=== PATIENT | male | born 1990 | race American Indian/Alaskan Native ===

== ENCOUNTER 2021-08-03 16:16 | Inpatient (IN) | payer OTHER, SELFPAY ==
[2021-08-03 16:51] VITALS: BMI 21.6
[2021-08-03 17:40] VITALS: BP 131/87; PULSE 69; TEMP 37.3
--- NOTE | 2021-08-03 18:07 | PC.ADMIT ---
Nursing Admission Note Dipak is a 30-year-old male who was transferred from [facility] ED after intentional overdose on 20 trazodone and 20 citalopram along with heroin and cocaine. During the admission interview, pt stated he didn't intend to kill himself, but he just wanted to numb the pain for a while. Pt denied anxiety at this time but was frequently bouncing his leg during the interview. When t/w asked him if he's experienced any trauma, he hesitated for a moment, then said I've seen a lot of things in my life. It's ok I don't want to talk about it right now. Pt denies any recent stressors contributing to his overdose. Pt lives in an apartment with his and her two children. Pt has a strong family support system. He said I just want to get better because I can't lose my family. Pt displayed future-orienting thinking by stating that he plans on attending groups and engaging in therapy. Pt stated he previously attended therapy at [facility] in [place] but stopped going to his appointments. After his discharge he hopes to resume attending regularly scheduled appointments. Pt denies SI/HI at this time, also denies AH/VH.
[2021-08-03] MEDS: Magnesium Hydrox/Alum Hydrox 30 ML ORAL.SUSP PO (19:40)
[2021-08-03] MEDS: hydrOXYzine HCL 25 MG TABLET PO ×2 (19:41→21:29)
[2021-08-03] MEDS: Acetaminophen 325 MG TABLET 650 MG PO (19:41)
[2021-08-03] MEDS: Nicotine Polacrilex 2 MG GUM 4 MG BUCCAL (19:45)
--- NOTE | 2021-08-04 | ECG_ITS ---
Test Reason : htn, cocaine use Blood Pressure : / mmHG Vent. Rate : 055 BPM Atrial Rate : 055 BPM P-R Int : 128 ms QRS Dur : 086 ms QT Int : 426 ms P-R-T Axes : 089 053 067 degrees QTc Int : 407 ms Sinus bradycardia Otherwise normal ECG No previous ECGs available Referred By: Nicholas Diaz Electronically Signed By:RAMAN GROVES
[2021-08-04 06:00] VITALS: BP 158/97; PULSE 55; RESP 16; TEMP 36.8; O2SAT 98
[2021-08-04 11:15] VITALS: PULSE 56
[2021-08-04] MEDS: Buprenorphine/Naloxone 4/1 mg FILM 1 FILM SUBLINGUAL ×2 (11:20→16:27)
[2021-08-04 11:40] LABS: MANUAL DIFF FLAG NO
[2021-08-04 11:42] LABS: Basophils Percent Auto 0.4 % (0-2); Eosinophils Absolute Auto 0.1 X10*3/uL (0.0-0.4); Eosinophils Percent Auto 1.1 % (0-4); Hematocrit 45.7 % (42-52); Hemoglobin 14.9 g/dl (14.0-18.0); Imm Gran Abs Auto 0.01 X10*3/uL (0.00-0.03); Imm Gran Pct Auto 0.1 % (0.0-0.4); Lymphocytes Absolute Auto 2.1 X10*3/uL (1.2-4.9); Lymphocytes Percent Auto 29.2 % (20-40); Mean Corpuscular HGB Conc 32.6 g/dl (31.0-36.0); Mean Corpuscular Hemoglobin 27.2 pg (27.0-33.0); Mean Corpuscular Volume 83.4 fL (80-98); Mean Platelet Volume 9.7 fL (9.4-12.4); Monocytes Absolute Auto 0.6 X10*3/uL (0.1-1.2); Monocytes Percent Auto 8.1 % (2-11); Neutrophils Absolute Auto 4.5 X10*3/uL (2.0-8.3); Neutrophils Percent Auto 61.1 % (45-73); Platelet Count 318 X10*3/uL (160-400); Red Blood Count 5.48 X10*6/uL (4.60-5.80); Red Cell Distribution Width 13.5 % (11.0-16.0); White Blood Count 7.3 X10*3/uL (4.8-10.8)
[2021-08-04 11:57] LABS: Alanine Aminotransferase 18 U/L (0-40); Albumin Level 4.5 g/dL (3.5-5.0); Alkaline Phosphatase 96 U/L (39-117); Anion Gap 13 (12-20); Aspartate Amino Transferase 15 U/L (5-37); Bilirubin Total 0.5 mg/dL (0.0-1.0); Blood Urea Nitrogen 7 mg/dL (9-16); Calcium 10.2 mg/dL (8.4-10.2); Carbon Dioxide 29 mmol/L (22-29); Chloride 101 mmol/L (96-108); Cholesterol 185 mg/dL; Creatinine Clr Calc Pharmacy 102.8; Estimated Glomerular Filt Rate > 60; Glucose Random 123 mg/dL (60-115); HDL Cholesterol 34 mg/dL; LDL Cholesterol Calculated 130 mg/dl; Magnesium 2.3 mg/dL (1.6-2.6); Potassium 4.3 mmol/L (3.3-5.1); Sodium 139 mmol/L (135-145); Total Protein 8.9 g/dL (6.5-8.0); Triglycerides 106 mg/dL
--- NOTE | 2021-08-04 13:18 | HO.PM.IMCN ---
History of Present Illness Data of Consult Service Date: 08/04/21 Primary Care Provider: NUVIA Sandhu [facility] Reason for consult: Medical management and history and physical 30-year-old gentleman with history of polysubstance abuse, admitted to with symptoms of anxiety, patient complaining of, constipation, lightheadedness and mild lower abdominal discomfort, he is not eating much since he feels he is cleaning himself from cocaine and heroin that he stopped using 3 days ago, he denies any medical diagnosis from before and is not on scheduled home medications, he denies chest pain, shortness of breath, cough, headache or weakness. Review of Systems Review of Systems: General no headache, no fever chills. CVS no chest pain, no palpitation. Respiratory no cough no sob. Gastrointestinal no nausea no vomiting, abdominal pain Yes all other systems are reviewed and are negative PMFSH Pertinent family history: Mother has diabetes, hypertension, father is Disease, no family history of colon cancer, breast cancer. Social History Household Members: Spouse and Children Housing: Apartment Do you presently have visiting nurse or other home services: No Patient Tobacco Use Status: Current everyday Tobacco user Tobacco use type: Cigarette Cigarette Packs Per Day: 1 Cigarettes Per Day: 20.0 Years Smoked: 20 Smoked in Last 30 Days: Yes e-Cigarette/Vaping Use: Never Used Patient Interested in Nicotine Replacement: Yes Patient Given Instructions on How to Stop Smoking: Yes Date Education Initiated: 08/03/21 Second Hand Smoke Exposure: Yes Substance Use Type: Crack/Cocaine, Heroin and Marijuana Substance Use Frequency: Daily Last Used Substance: Days (ago) Last Used Substance Other:: 3 days ago cocaine, heroin, marijuana Currently Displaying Signs/Symptoms of Drug Intoxication Withdrawal: No Any prior treatment program specific to substance use: No Have you been hit, kicked, punched, or otherwise hurt by someone within the past year? If so, by whom?: No Do you feel safe in your current relationship?: No Is there a partner from a previous relationship who is making you feel unsafe now?: No Are you made to feel afraid or neglected: No Advance Directives: No Advance Directives Information Provided: No Do you have thoughts of harming others: None Do you have a plan to hurt others: No Plan Recently lost weight without trying: No How much weight loss: Not applicable Eating poorly because of decreased appetite: No Nutrition screen score: 0 Nutrition Risks: No Nutritional Risk Poor oral hygiene: No Meds Allergies Allergy/AdvReac Type Severity Reaction Status Date / Time [facility] AdvReac Agitated Verified 08/03/21 17:36 Active Medications: Current Medications Acetaminophen (Acetaminophen 325 Mg Tablet) 650 mg PO Q6H PRN PRN Reason: Headache/Pain Mild Scale (1-3) Last Admin: 08/03/21 19:41 Dose: 650 mg Documented by: Al Hydroxide/Mg Hydroxide (Magnesium Hydrox/Alum Hydrox 30 Ml Oral.Susp) 30 ml PO Q6H PRN PRN Reason: Heartburn/Nausea Last Admin: 08/03/21 19:40 Dose: 30 ml Documented by: Hydroxyzine HCl (Hydroxyzine Hcl 25 Mg Tablet) 25 mg PO BEDTIME PRN PRN Reason: Anxiety Last Admin: 08/03/21 21:29 Dose: 25 mg Documented by: Magnesium Hydroxide (Milk Of Magnesia 30 Ml Oral.Susp) 30 ml PO DAILY PRN PRN Reason: Constipation Melatonin (Melatonin 3 Mg Tablet) 3 mg PO BEDTIME PRN PRN Reason: Insomnia Nicotine Polacrilex (Nicotine Polacrilex 2 Mg Gum) 4 mg BUCCAL Q2H PRN PRN Reason: Nicotine Cravings Last Admin: 08/03/21 19:45 Dose: 4 mg Documented by: Physical Exam Vital Signs and Narrative: Vital Signs: Last Vital Signs Temp 98.3 F 08/04/21 06:00 Pulse 55 08/04/21 06:00 Resp 16 08/04/21 06:00 BP 158/97 H 08/04/21 06:00 Pulse Ox 98 08/04/21 06:00 Body Mass Index 21.6 General AxOx3 , no acute distress. Neck supple, no JVD. CVS regular rate rhythm, Respiratory lungs clear to auscultation, no respiratory distress, no wheeze, no rhonchi. Gastrointestinal abdomen soft, mild left lower quadrant tenderness, bowel sounds audible, no guarding , no rigidity. Extremities no edema. Neuro nonfocal . Skin track interiano both upper extremities Results Labs CBC and Chem 7: 08/04/21 11:34 08/04/21 11:34 Labs: Laboratory Results - last 24 hr 08/04/21 08/04/21 11:34 11:34 MCV 83.4 MCH 27.2 MCHC 32.6 RDW 13.5 Plt Count 318 MPV 9.7 Immature Gran % (Auto) 0.1 Neut % (Auto) 61.1 Lymph % (Auto) 29.2 [place] % (Auto) 8.1 Eos % (Auto) 1.1 Baso % (Auto) 0.4 Lymph # (Auto) 2.1 [place] # (Auto) 0.6 Eos # (Auto) 0.1 Baso # (Auto) 0.0 Abs Immat Gran (auto) 0.01 Absolute Neuts (auto) 4.5 Absolute Nucleated RBC 0.000 Nucleated RBC % (auto) 0.0 Anion Gap 13 Estim Creat Clear Calc 102.8 Estimated GFR > 60 Random Glucose 123 H Calcium 10.2 Magnesium 2.3 Total Bilirubin 0.5 AST 15 ALT 18 Alkaline Phosphatase 96 Total Protein 8.9 H Albumin 4.5 Triglycerides 106 Cholesterol 185 LDL Cholesterol, Calc 130 HDL Cholesterol 34 Assessment and Plan (1) Lightheadedness: Status: Acute (2) Constipation: Status: Acute (3) Polysubstance abuse: Status: Acute 30-year-old gentleman with history of polysubstance abuse admitted to with no prior history of medical issues complaining of lightheadedness lower abdominal discomfort and constipation. Abdominal pain/constipation Abdominal pain likely due to constipation since patient is having small hard stools likely due to the use of heroin Noted to have normal electrolytes, LFTs, renal function and normal CBC, no evidence of infection Will place patient on MiraLax Lightheadedness likely due to poor by mouth intake, noted to have elevated blood sugars, hemoglobin A1cs pending question has diabetes, also noted to have mildly elevated blood pressure Will follow blood pressure and hemoglobin A1c if noted to be elevated patient will be placed on treatment. Thank you for allowing us to participate in the care of this patient call us with any questions.
[2021-08-04 14:06] LABS: Estimated Average Glucose 120 mg/dL; Hemoglobin A1C 149.7411 umol/L; Hemoglobin A1c % 5.8 %
[2021-08-04] MEDS: Nicotine Polacrilex 2 MG GUM 4 MG BUCCAL (14:54)
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
[2021-08-04 18:00] VITALS: BP 134/86; PULSE 69; TEMP 37.1
[2021-08-04 18:11] VITALS: BP 145/91; PULSE 62
[2021-08-04] MEDS: cloNIDine HCL 0.1 MG TABLET PO (18:11)
--- NOTE | 2021-08-04 18:28 | PM.EVENT ---
Event Note Date of Service: 08/04/21 Event Note: Addiction brief note: Patient started on Suboxone earlier by psych provider, consult requested to adjust dosing. Patient reports that he has been on Suboxone 8 mg in the morning and 4 mg in the evening. Received 4 mg earlier today with positive affect, patient is still reporting withdrawal symptoms. Plan: -additional 4 mg ordered for tonight -restart Suboxone 8 mg in the morning and 4 mg at 18:00 (as patient reported this is the time that he usually took it) -full note to follow.
[2021-08-04] MEDS: Sertraline HCL 25 MG TABLET PO (20:02)
[2021-08-04] MEDS: Melatonin 3 MG TABLET PO (21:06)
[2021-08-05 07:52] VITALS: BP 131/101; PULSE 73
[2021-08-05] MEDS: cloNIDine HCL 0.1 MG TABLET PO ×2 (07:52→21:34)
[2021-08-05] MEDS: Buprenorphine/Naloxone 8/2 mg FILM 1 FILM SUBLINGUAL (07:52)
[2021-08-05 08:33] VITALS: BP 131/95; PULSE 68
--- NOTE | 2021-08-05 11:12 | HO.ADDICTCON ---
History of Present Illness Date of Service: 08/04/2021 Chief Complaint: Unspecified anxiety Reason for Consult: opioid use disorder Requesting physician: Gita Snyder Discussed with referring provider: Yes Sources of Information: patient interviewed and chart reviewed HPI Narrative: Patient is a 30 year old Sinhala speaking male currently psychiatrically admitted with suicidal ideation and worsening depression. Consult requested to evaluate and treat OUD. Patient seen in room 516. He was laying bed, but awake and alert and engaged in interview. Substance use hx: -started using opiates and cocaine around age 16. -longest period in recovery approx 2 years following incareceration -recently began to use again (about 1-2 years) after moving to [place]- -using approx 3-4 bundles QD -has previously been on methadone and suboxone. Patient reporting mild withdrawal sx at time of interview. Malaise, body aches, anxiety. Denies nausea, loose stools, vomiting. He was given one dose of 4mg suboxone in the AM and reported positive effect. Reports he has previously been on 8mg in AM and 4mg in early evening. Past Psychiatric History: Past meds: sertraline (reports positive effect), celexa (says it was helpful but prefers sertraline), ativan, klonopin, gabapentin, seroquel, vistaril, trazodone, propranolol. PPH: -Hx of OP services at [facility] for therapy and med management at [facility] but was non-adherent with appointments, last seen 10/2020. -Hx of multiple psych inpatient admissions in [place]. -Hx of multiple crisis evals, last seen 03/28/21 due to SI with plans to jump off a bridge or overdose, [place] [facility] [place] [facility] [place] seen 08/2020 at [facility] ED due to SI, non-adherence with meds, superficially self-harming, and substance use, disposition was [facility] of care. -Previously had [facility] to help with med management/ adherence Personal & Social History: currently not living together Review of Systems Constitutional: Reports as per HPI and Reports no additional constitutional complaints Diagnostics Vital Signs (24Hr): Vital Signs - 24 hr 08/04/21 18:00 08/04/21 18:11 08/05/21 07:52 Temperature 98.8 F Pulse Rate 69 62 73 Blood Pressure 134/86 145/91 H 131/101 H 08/05/21 08:33 Temperature Pulse Rate 68 Blood Pressure 131/95 H Body Mass Index 21.6 Labs Results: 08/04/21 11:34 08/04/21 11:34 Labs: Laboratory Results - last 48 hr 08/04/21 08/04/21 08/04/21 11:34 11:34 11:34 WBC 7.3 RBC 5.48 Hgb 14.9 Hct 45.7 MCV 83.4 MCH 27.2 MCHC 32.6 RDW 13.5 Plt Count 318 MPV 9.7 Immature Gran % (Auto) 0.1 Neut % (Auto) 61.1 Lymph % (Auto) 29.2 [place] % (Auto) 8.1 Eos % (Auto) 1.1 Baso % (Auto) 0.4 Lymph # (Auto) 2.1 [place] # (Auto) 0.6 Eos # (Auto) 0.1 Baso # (Auto) 0.0 Abs Immat Gran (auto) 0.01 Absolute Neuts (auto) 4.5 Absolute Nucleated RBC 0.000 Nucleated RBC % (auto) 0.0 Sodium 139 Potassium 4.3 Chloride 101 Carbon Dioxide 29 Anion Gap 13 BUN 7 L Creatinine 0.86 Estim Creat Clear Calc 102.8 Estimated GFR > 60 Random Glucose 123 H Estimat Average Glucose 120 Hemoglobin A1c % 5.8 Calcium 10.2 Magnesium 2.3 Total Bilirubin 0.5 AST 15 ALT 18 Alkaline Phosphatase 96 Total Protein 8.9 H Albumin 4.5 Triglycerides 106 Cholesterol 185 LDL Cholesterol, Calc 130 HDL Cholesterol 34 Mental Status Exam Mental Status Exam Patient Appearance: Appropriate Patient Orientation: Person, Place, Time and Situation Level of Consciousness: Awake, Appropriate and Alert Patient Behavior: Appropriate and Cooperative Mood Description: Appropriate Affect Description: Calm and Appropriate Judgement: Fair Medications Medications Current Medications Acetaminophen (Acetaminophen 325 Mg Tablet) 650 mg PO Q6H PRN PRN Reason: Headache/Pain Mild Scale (1-3) Last Admin: 08/03/21 19:41 Dose: 650 mg Documented by: Al Hydroxide/Mg Hydroxide (Magnesium Hydrox/Alum Hydrox 30 Ml Oral.Susp) 30 ml PO Q6H PRN PRN Reason: Heartburn/Nausea Last Admin: 08/03/21 19:40 Dose: 30 ml Documented by: Buprenorphine/Naloxone (Buprenorphine/Naloxone 8/2 Mg Film) 1 film SUBLINGUAL DAILY PETE Last Admin: 08/05/21 07:52 Dose: 1 film Documented by: Buprenorphine/Naloxone (Buprenorphine/Naloxone 4/1 Mg Film) 1 film SUBLINGUAL DAILY@1800 [facility] Clonidine HCl (Clonidine Hcl 0.1 Mg Tablet) 0.1 mg PO Q6H PRN; Protocol PRN Reason: anxiety, hyperarousal Last Admin: 08/05/21 07:52 Dose: 0.1 mg Documented by: Hydroxyzine HCl (Hydroxyzine Hcl 25 Mg Tablet) 25 mg PO BEDTIME PRN PRN Reason: Anxiety Last Admin: 08/03/21 21:29 Dose: 25 mg Documented by: Magnesium Hydroxide (Milk Of Magnesia 30 Ml Oral.Susp) 30 ml PO DAILY PRN PRN Reason: Constipation Melatonin (Melatonin 3 Mg Tablet) 3 mg PO BEDTIME PRN PRN Reason: Insomnia Last Admin: 08/04/21 21:06 Dose: 3 mg Documented by: Nicotine Polacrilex (Nicotine Polacrilex 2 Mg Gum) 4 mg BUCCAL Q2H PRN PRN Reason: Nicotine Cravings Last Admin: 08/04/21 14:54 Dose: 4 mg Documented by: Polyethylene Glycol (Polyethylene Glycol 3350 17 Gm Powd.Pack) 17 gm PO DAILY [facility] Last Admin: 08/05/21 07:55 Dose: Not Given Documented by: Sertraline HCl (Sertraline Hcl 25 Mg Tablet) 25 mg PO BEDTIME [facility] Last Admin: 08/04/21 20:02 Dose: 25 mg Documented by: Allergies Allergies Allergy/AdvReac Type Severity Reaction Status Date / Time trazodone [From [facility]] AdvReac Agitated Verified 08/03/21 17:36 Assessment & Plan Assessment & Plan (1) Opioid use disorder: Status: Acute Code(s): F11.90 - Opioid use, unspecified, uncomplicated Assessment and Plan: suboxone 8mg in AM and 4mg in evening (total of 12mg QD) Greater than 50% of the session was spent on counseling and/or coordination of care PMFSH Social History Social History Household Members: Spouse and Children Housing: Apartment Do you presently have visiting nurse or other home services: No Patient Tobacco Use Status: Current everyday Tobacco user Tobacco use type: Cigarette Cigarette Packs Per Day: 1 Cigarettes Per Day: 20.0 Years Smoked: 20 Smoked in Last 30 Days: Yes e-Cigarette/Vaping Use: Never Used Patient Interested in Nicotine Replacement: Yes Patient Given Instructions on How to Stop Smoking: Yes Date Education Initiated: 08/03/21 Second Hand Smoke Exposure: Yes Substance Use Type: Crack/Cocaine, Heroin and Marijuana Substance Use Frequency: Daily Last Used Substance: Days (ago) Last Used Substance Other:: 3 days ago cocaine, heroin, marijuana Currently Displaying Signs/Symptoms of Drug Intoxication Withdrawal: No Any prior treatment program specific to substance use: No Have you been hit, kicked, punched, or otherwise hurt by someone within the past year? If so, by whom?: No Do you feel safe in your current relationship?: No Is there a partner from a previous relationship who is making you feel unsafe now?: No Are you made to feel afraid or neglected: No Advance Directives: No Advance Directives Information Provided: No Do you have thoughts of harming others: None Do you have a plan to hurt others: No Plan Recently lost weight without trying: No How much weight loss: Not applicable Eating poorly because of decreased appetite: No Nutrition screen score: 0 Nutrition Risks: No Nutritional Risk Poor oral hygiene: No service: No
--- NOTE | 2021-08-05 11:47 | P.PNPSI_ITS ---
Subjective Subjective Date of Service: 08/05/21 Reason For Visit: Unspecified anxiety Subjective Notes: 3 Day Medication Compliance: Yes Side effects from medications: No Attending Groups: Intermittent Review of Systems Acute medical concerns: Yes HTN, denies etoh withdrawl Medical Review of Systems: unchanged Review of Systems Review of Systems no change Constitutional: Reports no additional constitutional complaints Mental Status Exam Mental Status Exam Patient Appearance: Disheveled Patient Orientation: Person, Place and Situation Level of Consciousness: Drowsy and Sedated Patient Behavior: Passive and Fatigued Mood Description: Apathetic Affect Description: Withdrawn and Anxious Patient Cognition Impaired: No Ability to Follow Directions: Fair Speech Pattern: Impoverished (though south korean second language) Hallucinations: None Delusions: Not Present Thought Process: Intact Thought Content: positive for Intact and positive for Poverty of Content (?) Depressive Symptoms: Increased Anxiety Judgement: Fair Diagnostics Vital Signs (24Hr): Vital Signs - 24 hr 08/04/21 18:00 08/04/21 18:11 08/05/21 07:52 Temperature 98.8 F Pulse Rate 69 62 73 Blood Pressure 134/86 145/91 H 131/101 H 08/05/21 08:33 Temperature Pulse Rate 68 Blood Pressure 131/95 H Body Mass Index 21.6 Labs Results: 08/04/21 11:34 08/04/21 11:34 Labs: Laboratory Results - last 48 hr 08/04/21 08/04/21 08/04/21 11:34 11:34 11:34 WBC 7.3 RBC 5.48 Hgb 14.9 Hct 45.7 MCV 83.4 MCH 27.2 MCHC 32.6 RDW 13.5 Plt Count 318 MPV 9.7 Immature Gran % (Auto) 0.1 Neut % (Auto) 61.1 Lymph % (Auto) 29.2 [place] % (Auto) 8.1 Eos % (Auto) 1.1 Baso % (Auto) 0.4 Lymph # (Auto) 2.1 [place] # (Auto) 0.6 Eos # (Auto) 0.1 Baso # (Auto) 0.0 Abs Immat Gran (auto) 0.01 Absolute Neuts (auto) 4.5 Absolute Nucleated RBC 0.000 Nucleated RBC % (auto) 0.0 Sodium 139 Potassium 4.3 Chloride 101 Carbon Dioxide 29 Anion Gap 13 BUN 7 L Creatinine 0.86 Estim Creat Clear Calc 102.8 Estimated GFR > 60 Random Glucose 123 H Estimat Average Glucose 120 Hemoglobin A1c % 5.8 Calcium 10.2 Magnesium 2.3 Total Bilirubin 0.5 AST 15 ALT 18 Alkaline Phosphatase 96 Total Protein 8.9 H Albumin 4.5 Triglycerides 106 Cholesterol 185 LDL Cholesterol, Calc 130 HDL Cholesterol 34 Medications Medications Current Medications Acetaminophen (Acetaminophen 325 Mg Tablet) 650 mg PO Q6H PRN PRN Reason: Headache/Pain Mild Scale (1-3) Last Admin: 08/03/21 19:41 Dose: 650 mg Documented by: Al Hydroxide/Mg Hydroxide (Magnesium Hydrox/Alum Hydrox 30 Ml Oral.Susp) 30 ml PO Q6H PRN PRN Reason: Heartburn/Nausea Last Admin: 08/03/21 19:40 Dose: 30 ml Documented by: Buprenorphine/Naloxone (Buprenorphine/Naloxone 8/2 Mg Film) 1 film SUBLINGUAL DAILY PETE Last Admin: 08/05/21 07:52 Dose: 1 film Documented by: Buprenorphine/Naloxone (Buprenorphine/Naloxone 4/1 Mg Film) 1 film SUBLINGUAL DAILY@1800 [facility] Clonidine HCl (Clonidine Hcl 0.1 Mg Tablet) 0.1 mg PO Q6H PRN; Protocol PRN Reason: anxiety, hyperarousal Last Admin: 08/05/21 07:52 Dose: 0.1 mg Documented by: Hydroxyzine HCl (Hydroxyzine Hcl 25 Mg Tablet) 25 mg PO BEDTIME PRN PRN Reason: Anxiety Last Admin: 08/03/21 21:29 Dose: 25 mg Documented by: Magnesium Hydroxide (Milk Of Magnesia 30 Ml Oral.Susp) 30 ml PO DAILY PRN PRN Reason: Constipation Melatonin (Melatonin 3 Mg Tablet) 3 mg PO BEDTIME PRN PRN Reason: Insomnia Last Admin: 08/04/21 21:06 Dose: 3 mg Documented by: Nicotine Polacrilex (Nicotine Polacrilex 2 Mg Gum) 4 mg BUCCAL Q2H PRN PRN Reason: Nicotine Cravings Last Admin: 08/04/21 14:54 Dose: 4 mg Documented by: Polyethylene Glycol (Polyethylene Glycol 3350 17 Gm Powd.Pack) 17 gm PO DAILY PETE Last Admin: 08/05/21 07:55 Dose: Not Given Documented by: Sertraline HCl (Sertraline Hcl 25 Mg Tablet) 25 mg PO BEDTIME PETE Last Admin: 08/04/21 20:02 Dose: 25 mg Documented by: Allergies Allergies Allergy/AdvReac Type Severity Reaction Status Date / Time trazodone [From Desyrel] AdvReac Agitated Verified 08/03/21 17:36 Assessment & Plan Assessment & Plan (1) PTSD (post-traumatic stress disorder): Status: Acute Code(s): F43.10 - Post-traumatic stress disorder, unspecified (2) MDD (major depressive disorder), recurrent episode, moderate: Status: Acute Code(s): F33.1 - Major depressive disorder, recurrent, moderate (3) Opioid use disorder: Status: Acute Code(s): F11.90 - Opioid use, unspecified, uncomplicated (4) Cocaine use disorder: Status: Acute Code(s): F14.10 - Cocaine abuse, uncomplicated Assessment and Plan: 31 yo male reports no further withdrawl , denies etoh hx - no palpitations or headache- ongoing anxiety, tolerating sertraline change clonidine to bid for htn Monitor response to medications. Monitor for safety in the milieu. Discharge on stabilization. Patient seen. Chart reviewed. Discussed with team. Obtain collateral contact info?as needed Greater than 50% of the session was spent on counseling and/or coordination of care Patient educated on: medication risk/benefits, substance abuse and medical condition Informed Consent: understands Reason for contiued inpatient stay Substantial Risk for: rapid decompensation
[2021-08-05] MEDS: hydrOXYzine HCL 25 MG TABLET PO (16:05)
[2021-08-05] MEDS: Buprenorphine/Naloxone 4/1 mg FILM 1 FILM SUBLINGUAL (19:03)
[2021-08-05] MEDS: Sertraline HCL 25 MG TABLET PO (21:34)
[2021-08-06 06:00] VITALS: BP 143/86; PULSE 61; RESP 18; TEMP 36.9; O2SAT 97
[2021-08-06 08:01] VITALS: BP 120/79; PULSE 109
[2021-08-06] MEDS: cloNIDine HCL 0.1 MG TABLET PO ×2 (08:01→19:23)
[2021-08-06] MEDS: Buprenorphine/Naloxone 8/2 mg FILM 1 FILM SUBLINGUAL (08:01)
--- NOTE | 2021-08-06 11:35 | HO.PSYCHPN ---
Subjective Subjective Date of Service: 08/06/21 Reason For Visit: Unspecified anxiety Subjective Notes: 3 Day Interim History: Pretty withdrawn and depressed appearing, ansowers questions with head shake yes or no Medication Compliance: Yes Side effects from medications: No Attending Groups: No Review of Systems Acute medical concerns: No Medical Review of Systems: unchanged Mental Status Exam Mental Status Exam Patient Appearance: Fatigued and Disheveled Patient Orientation: Person, Place and Situation Level of Consciousness: Drowsy Patient Behavior: Passive and Fatigued Mood Description: Apathetic Affect Description: Withdrawn and Anxious Patient Cognition Impaired: No Ability to Follow Directions: Fair Speech Pattern: Impoverished (though estonian second language) Hallucinations: None Delusions: Not Present Thought Process: Intact Thought Content: positive for Intact and positive for Poverty of Content (?) Depressive Symptoms: Increased Anxiety Abnormal Motor Activity Signs and Symptoms: Psychomotor Retardation (?) Judgement: Fair Diagnostics Vital Signs (24Hr): Vital Signs - 24 hr 08/06/21 06:00 08/06/21 08:01 Temperature 98.4 F Pulse Rate 61 109 H Respiratory Rate 18 Blood Pressure 143/86 H 120/79 Pulse Oximetry 97 Body Mass Index 21.6 Labs Results: 08/04/21 11:34 08/04/21 11:34 Labs: Laboratory Results - last 48 hr 08/04/21 08/04/21 08/04/21 11:34 11:34 11:34 WBC 7.3 RBC 5.48 Hgb 14.9 Hct 45.7 MCV 83.4 MCH 27.2 MCHC 32.6 RDW 13.5 Plt Count 318 MPV 9.7 Immature Gran % (Auto) 0.1 Neut % (Auto) 61.1 Lymph % (Auto) 29.2 [place] % (Auto) 8.1 Eos % (Auto) 1.1 Baso % (Auto) 0.4 Lymph # (Auto) 2.1 [place] # (Auto) 0.6 Eos # (Auto) 0.1 Baso # (Auto) 0.0 Abs Immat Gran (auto) 0.01 Absolute Neuts (auto) 4.5 Absolute Nucleated RBC 0.000 Nucleated RBC % (auto) 0.0 Sodium 139 Potassium 4.3 Chloride 101 Carbon Dioxide 29 Anion Gap 13 BUN 7 L Creatinine 0.86 Estim Creat Clear Calc 102.8 Estimated GFR > 60 Random Glucose 123 H Estimat Average Glucose 120 Hemoglobin A1c % 5.8 Calcium 10.2 Magnesium 2.3 Total Bilirubin 0.5 AST 15 ALT 18 Alkaline Phosphatase 96 Total Protein 8.9 H Albumin 4.5 Triglycerides 106 Cholesterol 185 LDL Cholesterol, Calc 130 HDL Cholesterol 34 Medications Medications Current Medications Acetaminophen (Acetaminophen 325 Mg Tablet) 650 mg PO Q6H PRN PRN Reason: Headache/Pain Mild Scale (1-3) Last Admin: 08/03/21 19:41 Dose: 650 mg Documented by: Al Hydroxide/Mg Hydroxide (Magnesium Hydrox/Alum Hydrox 30 Ml Oral.Susp) 30 ml PO Q6H PRN PRN Reason: Heartburn/Nausea Last Admin: 08/03/21 19:40 Dose: 30 ml Documented by: Buprenorphine/Naloxone (Buprenorphine/Naloxone 8/2 Mg Film) 1 film SUBLINGUAL DAILY PETE Last Admin: 08/06/21 08:01 Dose: 1 film Documented by: Buprenorphine/Naloxone (Buprenorphine/Naloxone 4/1 Mg Film) 1 film SUBLINGUAL DAILY@1800 PETE Last Admin: 08/05/21 19:03 Dose: 1 film Documented by: Clonidine HCl (Clonidine Hcl 0.1 Mg Tablet) 0.1 mg PO BID PETE; Protocol Last Admin: 08/06/21 08:01 Dose: 0.1 mg Documented by: Hydroxyzine HCl (Hydroxyzine Hcl 25 Mg Tablet) 25 mg PO BEDTIME PRN PRN Reason: Anxiety Last Admin: 08/05/21 16:05 Dose: 25 mg Documented by: Magnesium Hydroxide (Milk Of Magnesia 30 Ml Oral.Susp) 30 ml PO DAILY PRN PRN Reason: Constipation Melatonin (Melatonin 3 Mg Tablet) 3 mg PO BEDTIME PRN PRN Reason: Insomnia Last Admin: 08/04/21 21:06 Dose: 3 mg Documented by: Nicotine Polacrilex (Nicotine Polacrilex 2 Mg Gum) 4 mg BUCCAL Q2H PRN PRN Reason: Nicotine Cravings Last Admin: 08/04/21 14:54 Dose: 4 mg Documented by: Polyethylene Glycol (Polyethylene Glycol 3350 17 Gm Powd.Pack) 17 gm PO DAILY PRN PRN Reason: constipation Allergies Allergies Allergy/AdvReac Type Severity Reaction Status Date / Time trazodone [From Desyrel] AdvReac Agitated Verified 08/03/21 17:36 Assessment & Plan Assessment & Plan (1) PTSD (post-traumatic stress disorder): Status: Acute Code(s): F43.10 - Post-traumatic stress disorder, unspecified (2) MDD (major depressive disorder), recurrent episode, moderate: Status: Acute Code(s): F33.1 - Major depressive disorder, recurrent, moderate (3) Opioid use disorder: Status: Acute Code(s): F11.90 - Opioid use, unspecified, uncomplicated (4) Cocaine use disorder: Status: Acute Code(s): F14.10 - Cocaine abuse, uncomplicated Assessment and Plan: 31 yo male bp better on clonidine bid very withdrawn and depressed appearting this am denies si agrees to me change sertraline to am and inc dose to 50mg Monitor response to medications. Monitor for safety in the milieu. Discharge on stabilization. Patient seen. Chart reviewed. Discussed with team. Obtain collateral contact info?as needed Greater than 50% of the session was spent on counseling and/or coordination of care Patient educated on: diagnosis and medication risk/benefits Informed Consent: further education needed Reason for contiued inpatient stay Substantial Risk for: harm to self and rapid decompensation
[2021-08-06] MEDS: Sertraline HCL 50 MG TABLET PO (14:06)
[2021-08-06 16:39] VITALS: BP 109/74; PULSE 83; TEMP 37.1
[2021-08-06] MEDS: Buprenorphine/Naloxone 4/1 mg FILM 1 FILM SUBLINGUAL (17:41)
[2021-08-06] MEDS: Nicotine Polacrilex 2 MG GUM 4 MG BUCCAL (17:43)
[2021-08-06 19:23] VITALS: BP 138/84; PULSE 89
[2021-08-06] MEDS: Melatonin 3 MG TABLET PO (21:57)
[2021-08-07] MEDS: Melatonin 3 MG TABLET PO ×3 (00:09→21:55)
[2021-08-07] MEDS: Magnesium Hydrox/Alum Hydrox 30 ML ORAL.SUSP PO (01:11)
[2021-08-07 06:00] VITALS: BP 112/78; PULSE 90; RESP 18; TEMP 36.6; O2SAT 99
[2021-08-07] MEDS: hydrOXYzine HCL 25 MG TABLET PO (06:33)
[2021-08-07 07:56] VITALS: BP 118/75; PULSE 70
[2021-08-07] MEDS: cloNIDine HCL 0.1 MG TABLET PO ×2 (07:56→19:25)
[2021-08-07] MEDS: Sertraline HCL 50 MG TABLET PO (07:56)
[2021-08-07] MEDS: Buprenorphine/Naloxone 8/2 mg FILM 1 FILM SUBLINGUAL (07:56)
[2021-08-07 08:48] VITALS: PULSE 70; RESP 16; TEMP 36.7; O2SAT 97
--- NOTE | 2021-08-07 11:00 | HO.PSYCHPN ---
Subjective Subjective Date of Service: 08/07/21 Reason For Visit: Unspecified anxiety Interim History: pt reports feeling much better; depression is gone and he says he's in a good mood. Pt says anxiety also down. One way he can tell his mood is better is that he is now sleeping well and eating well. Pt says he feels ready for discharge. He reports his plan is to return home to his and get back to work [employer] (pt already has a job which is waiting for him). Pt agrees to increase AM suboxone to 12/4mg to help cover him better and also to increase Zoloft to 75mg to help his mood/anxiety longer term. Pt otherwise likes his meds and says clonidine helps with anxiety. Pt denies any SI at all; he denies HI and AVH and is optimistic about staying sober. Mental Status Exam Mental Status Exam Narrative: Patient Appearance:?alert, oriented, adequately groomed Patient Orientation:?Person, Place and Situation Level of Consciousness:?Alert and oriented Patient Behavior:?cooperative, calm, friendly Mood Description:? good Affect Description:?congruent Patient Cognition Impaired:?No Ability to Follow Directions:?Fair Speech Pattern:?WNL; not pressured Hallucinations:?None Delusions:?Not Present Thought Process:?Intact, linear, logical, goal oriented Thought Content:?no SI/HI; on discharge, getting back to family and to work Abnormal Motor Activity Signs and Symptoms:?no Psychomotor Retardation Judgement:?Fair Diagnostics Vital Signs (24Hr): Vital Signs - 24 hr 08/06/21 16:39 08/06/21 19:23 08/07/21 06:00 Temperature 98.7 F 97.9 F Pulse Rate 83 89 90 Respiratory Rate 18 Blood Pressure 109/74 138/84 112/78 Pulse Oximetry 99 08/07/21 07:56 08/07/21 08:48 Temperature 98.1 F Pulse Rate 70 70 Respiratory Rate 16 Blood Pressure 118/75 Pulse Oximetry 97 Body Mass Index 21.6 Labs Results: 08/04/21 11:34 08/04/21 11:34 Medications Medications Current Medications Acetaminophen (Acetaminophen 325 Mg Tablet) 650 mg PO Q6H PRN PRN Reason: Headache/Pain Mild Scale (1-3) Last Admin: 08/03/21 19:41 Dose: 650 mg Documented by: Al Hydroxide/Mg Hydroxide (Magnesium Hydrox/Alum Hydrox 30 Ml Oral.Susp) 30 ml PO Q6H PRN PRN Reason: Heartburn/Nausea Last Admin: 08/07/21 01:11 Dose: 30 ml Documented by: Buprenorphine/Naloxone (Buprenorphine/Naloxone 4/1 Mg Film) 1 film SUBLINGUAL DAILY@1800 PETE Last Admin: 08/06/21 17:41 Dose: 1 film Documented by: Buprenorphine/Naloxone (Buprenorphine/Naloxone 12/3 Mg Film) 1 film SUBLINGUAL DAILY PETE Clonidine HCl (Clonidine Hcl 0.1 Mg Tablet) 0.1 mg PO BID PETE; Protocol Last Admin: 08/07/21 07:56 Dose: 0.1 mg Documented by: Hydroxyzine HCl (Hydroxyzine Hcl 25 Mg Tablet) 25 mg PO BEDTIME PRN PRN Reason: Anxiety Last Admin: 08/07/21 06:33 Dose: 25 mg Documented by: Magnesium Hydroxide (Milk Of Magnesia 30 Ml Oral.Susp) 30 ml PO DAILY PRN PRN Reason: Constipation Melatonin (Melatonin 3 Mg Tablet) 3 mg PO BEDTIME PRN PRN Reason: Insomnia Last Admin: 08/07/21 00:09 Dose: 3 mg Documented by: Nicotine Polacrilex (Nicotine Polacrilex 2 Mg Gum) 4 mg BUCCAL Q2H PRN PRN Reason: Nicotine Cravings Last Admin: 08/06/21 17:43 Dose: 4 mg Documented by: Polyethylene Glycol (Polyethylene Glycol 3350 17 Gm Powd.Pack) 17 gm PO DAILY PRN PRN Reason: constipation Sertraline HCl (Sertraline Hcl 25 Mg Tablet) 75 mg PO DAILY [facility] Allergies Allergies Allergy/AdvReac Type Severity Reaction Status Date / Time trazodone [From [facility]] AdvReac Agitated Verified 08/03/21 17:36 Assessment & Plan Assessment & Plan (1) PTSD (post-traumatic stress disorder): Status: Acute Code(s): F43.10 - Post-traumatic stress disorder, unspecified (2) MDD (major depressive disorder), recurrent episode, moderate: Status: Acute Code(s): F33.1 - Major depressive disorder, recurrent, moderate (3) Opioid use disorder: Status: Acute Code(s): F11.90 - Opioid use, unspecified, uncomplicated (4) Cocaine use disorder: Status: Acute Code(s): F14.10 - Cocaine abuse, uncomplicated Assessment and Plan: 31 yo male bp better on clonidine bid depression resolved and pt reports mood is good; denies any SI, HI or AVH. Says anxiety better too; says he's ready for DC home to family and work; optimistic about staying sober 3 day due 08/09 plan: plan for DC; will discuss w/ social work increased subxone 12/4mg to help cover increased zoloft 75mg Monitor response to medications. Monitor for safety in the milieu. Discharge on stabilization. Patient seen. Chart reviewed. Discussed with team. Obtain collateral contact info?as needed Greater than 50% of the session was spent on counseling and/or coordination of care Reason for contiued inpatient stay Substantial Risk for: stable for discharge
[2021-08-07] MEDS: Buprenorphine/Naloxone 4/1 mg FILM 1 FILM SUBLINGUAL (16:24)
[2021-08-07 18:00] VITALS: BP 126/78; PULSE 80
[2021-08-07 19:25] VITALS: BP 137/78; PULSE 88
[2021-08-08 06:00] VITALS: BP 107/67; PULSE 83; RESP 18; TEMP 36.5; O2SAT 99
[2021-08-08 08:20] VITALS: BP 112/68; PULSE 77; RESP 16; TEMP 36.7; O2SAT 99
[2021-08-08] MEDS: Sertraline HCL 25 MG TABLET 75 MG PO (08:24)
[2021-08-08 08:25] VITALS: BP 112/68; PULSE 77
[2021-08-08] MEDS: Buprenorphine/Naloxone 12/3 mg FILM 1 FILM SUBLINGUAL (08:25)
[2021-08-08] MEDS: cloNIDine HCL 0.1 MG TABLET PO ×2 (08:25→20:54)
[2021-08-08] MEDS: hydrOXYzine HCL 25 MG TABLET PO (13:32)
--- NOTE | 2021-08-08 14:37 | HO.PSYCHPN ---
Subjective Subjective Date of Service: 08/09/21 Reason For Visit: Unspecified anxiety Interim History: pt reports he's good and denies any SI or HI; no AVH. He says his anxiety is up but only since he's eager to discharge and get back to work. Due to hx of depression/anxiety, he agrees to increase Zoloft to 100mg. Pt also says he did not sleep well last night and asks for Trazodone. This is listed as an allergy, but pt says he takes trazodone at home, it works well and he's not allergic to it; process description writer confirmed this prescription hx; process description writer mentioned Desyrel to which he says he's allergic to a Seroquel not Desyrel. He feels optimistic he can stay sober. Pt has no other concerns or requests; he thanks process description writer. Mental Status Exam Mental Status Exam Narrative: Patient Appearance:?alert, oriented, adequately groomed Patient Orientation:?Person, Place and Situation Level of Consciousness:?Alert and oriented Patient Behavior:?cooperative, calm, friendly Mood Description:? good Affect Description:?congruent Patient Cognition Impaired:?No Ability to Follow Directions:?Fair Speech Pattern:?WNL; not pressured Hallucinations:?None Delusions:?Not Present Thought Process:?Intact, linear, logical, goal oriented Thought Content:?no SI/HI; on discharge, getting back to family and to work Abnormal Motor Activity Signs and Symptoms:?no Psychomotor Retardation Judgement:?Fair Diagnostics Vital Signs (24Hr): Vital Signs - 24 hr 08/07/21 18:00 08/07/21 19:25 08/08/21 06:00 Temperature 97.7 F Pulse Rate 80 88 83 Respiratory Rate 18 Blood Pressure 126/78 137/78 107/67 Pulse Oximetry 99 08/08/21 08:20 08/08/21 08:25 Temperature 98.1 F Pulse Rate 77 77 Respiratory Rate 16 Blood Pressure 112/68 112/68 Pulse Oximetry 99 Body Mass Index 21.6 Labs Results: 08/04/21 11:34 08/04/21 11:34 Medications Medications Current Medications Acetaminophen (Acetaminophen 325 Mg Tablet) 650 mg PO Q6H PRN PRN Reason: Headache/Pain Mild Scale (1-3) Last Admin: 08/03/21 19:41 Dose: 650 mg Documented by: Al Hydroxide/Mg Hydroxide (Magnesium Hydrox/Alum Hydrox 30 Ml Oral.Susp) 30 ml PO Q6H PRN PRN Reason: Heartburn/Nausea Last Admin: 08/07/21 01:11 Dose: 30 ml Documented by: Buprenorphine/Naloxone (Buprenorphine/Naloxone 4/1 Mg Film) 1 film SUBLINGUAL DAILY@1800 PETE Last Admin: 08/07/21 16:24 Dose: 1 film Documented by: Buprenorphine/Naloxone (Buprenorphine/Naloxone 12/3 Mg Film) 1 film SUBLINGUAL DAILY [facility] Last Admin: 08/08/21 08:25 Dose: 1 film Documented by: Clonidine HCl (Clonidine Hcl 0.1 Mg Tablet) 0.1 mg PO BID [facility]; Protocol Last Admin: 08/08/21 08:25 Dose: 0.1 mg Documented by: Hydroxyzine HCl (Hydroxyzine Hcl 25 Mg Tablet) 25 mg PO Q6H PRN PRN Reason: Anxiety Last Admin: 08/08/21 13:32 Dose: 25 mg Documented by: Magnesium Hydroxide (Milk Of Magnesia 30 Ml Oral.Susp) 30 ml PO DAILY PRN PRN Reason: Constipation Melatonin (Melatonin 3 Mg Tablet) 3 mg PO BEDTIME PRN PRN Reason: Insomnia Last Admin: 08/07/21 21:55 Dose: 3 mg Documented by: Nicotine Polacrilex (Nicotine Polacrilex 2 Mg Gum) 4 mg BUCCAL Q2H PRN PRN Reason: Nicotine Cravings Last Admin: 08/06/21 17:43 Dose: 4 mg Documented by: Polyethylene Glycol (Polyethylene Glycol 3350 17 Gm Powd.Pack) 17 gm PO DAILY PRN PRN Reason: constipation Sertraline HCl (Sertraline Hcl 25 Mg Tablet) 75 mg PO DAILY [facility] Last Admin: 08/08/21 08:24 Dose: 75 mg Documented by: Assessment & Plan Assessment & Plan (1) PTSD (post-traumatic stress disorder): Status: Acute Code(s): F43.10 - Post-traumatic stress disorder, unspecified (2) MDD (major depressive disorder), recurrent episode, moderate: Status: Acute Code(s): F33.1 - Major depressive disorder, recurrent, moderate (3) Opioid use disorder: Status: Acute Code(s): F11.90 - Opioid use, unspecified, uncomplicated (4) Cocaine use disorder: Status: Acute Code(s): F14.10 - Cocaine abuse, uncomplicated Assessment and Plan: 31 yo male bp better on clonidine bid depression resolved and pt reports mood is good; denies any SI, HI or AVH. Says anxiety better too; says he's ready for DC home to family and work; optimistic about staying sober 3 day due 10/ pt appropriate for dc plan: plan for DC; will discuss w/ social work increased subxone 12/4mg to help cover increased zoloft 100mg Monitor response to medications. Monitor for safety in the milieu. Discharge on stabilization. Patient seen. Chart reviewed. Discussed with team. Obtain collateral contact info?as needed Greater than 50% of the session was spent on counseling and/or coordination of care Reason for contiued inpatient stay Substantial Risk for: stable for discharge
[2021-08-08 18:00] VITALS: BP 125/85; PULSE 91; RESP 16; TEMP 36.6; O2SAT 97
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
[2021-08-08] MEDS: Buprenorphine/Naloxone 4/1 mg FILM 1 FILM SUBLINGUAL (18:40)
[2021-08-08 20:54] VITALS: BP 125/85; PULSE 91
[2021-08-08] MEDS: traZODone HCL 50 MG TABLET PO ×2 (20:55→22:57)
[2021-08-09 06:00] VITALS: BP 108/68; PULSE 77; RESP 16; TEMP 36.4; O2SAT 100
[2021-08-09 09:07] VITALS: BP 129/84; PULSE 109
[2021-08-09] MEDS: cloNIDine HCL 0.1 MG TABLET PO (09:07)
[2021-08-09] MEDS: Buprenorphine/Naloxone 12/3 mg FILM 1 FILM SUBLINGUAL (09:08)
[2021-08-09] MEDS: Sertraline HCL 100 MG TABLET PO (09:08)
[2021-08-09] MEDS: Naloxone HCl Nasal TAKE HOME 4 MG SPRAY NOSTRILALT (09:11)
== END 2021-08-09 12:47 | disposition home or self-care (01) | DRG 751 ==
PROVIDERS: Psychiatry & Neurology Psychiatry; Admitting Provider Psychiatry & Neurology Psychiatry; PCP Physician Assistant Medical; Visit Provider Psychiatry & Neurology Psychiatry
DX: F33.1 Major depressive disorder, recurrent, moderate (principal); F11.20 Opioid dependence, uncomplicated; R45.851 Suicidal ideations; F17.210 Nicotine dependence, cigarettes, uncomplicated; F43.10 Post-traumatic stress disorder, unspecified; K59.00 Constipation, unspecified; Z71.6 Tobacco abuse counseling; Z79.899 Other long term (current) drug therapy
CPT/HCPCS: 36415; 80053; 80061; 83036; 83735; 85025; 90686; 93005

== ENCOUNTER → 2021-08-16 14:56 | Outpatient (BNVA) | payer OTHER, SELFPAY | PROVIDERS: Visit Provider Internal Medicine | DX: F11.90 Opioid use, unspecified, uncomplicated (principal); F14.10 Cocaine abuse, uncomplicated; F33.1 Major depressive disorder, recurrent, moderate; F43.10 Post-traumatic stress disorder, unspecified | CPT/HCPCS: 80305; 99202 ==

== ENCOUNTER → 2021-08-22 10:33 | Outpatient (BNVA) | payer OTHER, SELFPAY | PROVIDERS: Visit Provider Internal Medicine | DX: F11.90 Opioid use, unspecified, uncomplicated (principal) | CPT/HCPCS: 80305; 99212 ==

== ENCOUNTER → 2021-09-04 13:58 | Outpatient (BNVA) | payer OTHER, SELFPAY | PROVIDERS: Visit Provider Internal Medicine | DX: F11.90 Opioid use, unspecified, uncomplicated (principal) | CPT/HCPCS: 80305; 99212 ==

== ENCOUNTER → 2021-09-11 14:08 | Outpatient (BNVA) | payer OTHER, SELFPAY | PROVIDERS: Visit Provider Internal Medicine | DX: Z51.81 Encounter for therapeutic drug level monitoring (principal); F11.90 Opioid use, unspecified, uncomplicated | CPT/HCPCS: 80305; 99212 ==

== ENCOUNTER → 2021-10-11 14:18 | Outpatient (BNVA) | payer OTHER, SELFPAY | PROVIDERS: Visit Provider Internal Medicine | DX: F11.20 Opioid dependence, uncomplicated (principal); Z51.81 Encounter for therapeutic drug level monitoring; Z79.899 Other long term (current) drug therapy | CPT/HCPCS: 80305; 99212 ==

== ENCOUNTER → 2021-10-25 14:34 | Outpatient (BNVA) | payer OTHER, SELFPAY | PROVIDERS: Visit Provider Internal Medicine | DX: F11.20 Opioid dependence, uncomplicated (principal); Z51.81 Encounter for therapeutic drug level monitoring; Z79.899 Other long term (current) drug therapy | CPT/HCPCS: 80305; 99212 ==

== ENCOUNTER → 2021-11-10 14:33 | Outpatient (BNVA) | payer OTHER, SELFPAY | PROVIDERS: Visit Provider Internal Medicine | DX: F11.20 Opioid dependence, uncomplicated (principal); Z51.81 Encounter for therapeutic drug level monitoring; Z79.899 Other long term (current) drug therapy | CPT/HCPCS: 80305; 99212 ==

== ENCOUNTER → 2021-12-15 10:48 | Outpatient (BNVA) | payer OTHER, SELFPAY | PROVIDERS: Visit Provider Internal Medicine | DX: Z51.81 Encounter for therapeutic drug level monitoring (principal); F11.20 Opioid dependence, uncomplicated | CPT/HCPCS: 80305; 99211 ==

== ENCOUNTER → 2022-01-12 11:50 | Outpatient (BNVA) | payer OTHER, SELFPAY | PROVIDERS: Visit Provider Internal Medicine | DX: Z51.81 Encounter for therapeutic drug level monitoring (principal); F11.20 Opioid dependence, uncomplicated | CPT/HCPCS: 80305; 99212 ==

== ENCOUNTER → 2022-02-09 13:01 | Outpatient (BNVA) | payer OTHER, SELFPAY | PROVIDERS: Visit Provider Internal Medicine | DX: F11.20 Opioid dependence, uncomplicated (principal); Z51.81 Encounter for therapeutic drug level monitoring; Z79.899 Other long term (current) drug therapy | CPT/HCPCS: 80305; 99212 ==

== ENCOUNTER → 2022-03-14 14:23 | Outpatient (BNVA) | payer OTHER, SELFPAY | PROVIDERS: Visit Provider Internal Medicine | DX: Z51.81 Encounter for therapeutic drug level monitoring (principal); F11.20 Opioid dependence, uncomplicated | CPT/HCPCS: 80305; 99212 ==

== ENCOUNTER → 2022-05-15 11:24 | Outpatient (BNVA) | payer OTHER, SELFPAY | PROVIDERS: Visit Provider Internal Medicine | DX: F11.20 Opioid dependence, uncomplicated (principal) | CPT/HCPCS: 80305; 99212 ==

== ENCOUNTER → 2022-07-23 14:08 | Outpatient (BNVA) | payer OTHER, SELFPAY | PROVIDERS: Visit Provider Internal Medicine | DX: Z51.81 Encounter for therapeutic drug level monitoring (principal); F11.20 Opioid dependence, uncomplicated | CPT/HCPCS: 99212 ==

== ENCOUNTER → 2022-10-03 10:58 | Outpatient (BNVA) | payer OTHER, SELFPAY | PROVIDERS: PCP Physician Assistant Medical; Visit Provider Nurse Practitioner Psychiatric/Mental Health | DX: Z51.81 Encounter for therapeutic drug level monitoring (principal); F11.20 Opioid dependence, uncomplicated | CPT/HCPCS: 80305; 99212 ==

== ENCOUNTER → 2022-11-01 09:16 | Outpatient (BNVA) | payer OTHER, SELFPAY | PROVIDERS: PCP Physician Assistant Medical; Visit Provider Nurse Practitioner Psychiatric/Mental Health | DX: F11.20 Opioid dependence, uncomplicated (principal) | CPT/HCPCS: 99212 ==

== ENCOUNTER → 2022-11-29 15:33 | Outpatient (BNVA) | payer OTHER, SELFPAY | PROVIDERS: PCP Physician Assistant Medical; Visit Provider Nurse Practitioner Psychiatric/Mental Health | DX: F11.20 Opioid dependence, uncomplicated (principal); F14.10 Cocaine abuse, uncomplicated | CPT/HCPCS: 99212 ==

== ENCOUNTER → 2022-12-26 15:14 | Outpatient (BNVA) | payer OTHER, SELFPAY | PROVIDERS: PCP Physician Assistant Medical; Visit Provider Nurse Practitioner Psychiatric/Mental Health | DX: F11.20 Opioid dependence, uncomplicated (principal); F14.10 Cocaine abuse, uncomplicated | CPT/HCPCS: 99212 ==

== ENCOUNTER → 2023-01-22 10:03 | Outpatient (BNVA) | payer OTHER, SELFPAY | PROVIDERS: PCP Physician Assistant Medical; Visit Provider Nurse Practitioner Psychiatric/Mental Health | DX: Z51.81 Encounter for therapeutic drug level monitoring (principal); F11.20 Opioid dependence, uncomplicated | CPT/HCPCS: 80305; 99212 ==

== ENCOUNTER → 2023-03-18 11:09 | Outpatient (BNVA) | payer MEDICAID, SELFPAY | PROVIDERS: PCP Physician Assistant Medical; Visit Provider Nurse Practitioner Psychiatric/Mental Health | DX: Z51.81 Encounter for therapeutic drug level monitoring (principal); F11.20 Opioid dependence, uncomplicated | CPT/HCPCS: 99212 ==

== ENCOUNTER 2024-03-20 11:15 | Outpatient (AMB) | payer MEDICAID, SELFPAY ==
--- NOTE | 2024-03-20 17:18 | A.OFFVISCC_ITS ---
Intake Visit Reasons: MAT Intake Allergies quetiapine [From Seroquel] Adverse Reaction (Verified 03/18/23 11:14) agitation Medication List - Last Reconciled 03/20/24 by Janet Whitney CNP buprenorphine-naloxone 8-2 mg (Suboxone) 1 film sublingual BID 28 days HPI HPI MAT Intake: Details: Patient presents to reestablish care following relocation back to [place] from [place] No interruption in OUD treatment while in [place] and dose remained the same (8mg BID) Denies any substance use Has already obtained employment here and has re-established care with all of his medical providers No ED visits or hospitalizations since last visit with [facility] and no medication changes [facility] Medical History (Updated 03/24/24 @ 15:46 by Janet Whitney CNP) Cocaine use disorder Constipation Social History Household Members: Spouse and Children Housing: Apartment Do you presently have visiting nurse or other home services: No Patient Tobacco Use Status: Current everyday Tobacco user Tobacco use type: Cigarette Cigarette Packs Per Day: 1 Cigarettes Per Day: 20.0 Years Smoked: 20 e-Cigarette/Vaping Use: Never Used Second Hand Smoke Exposure: Yes Substance Use Type: Crack/Cocaine, Heroin and Marijuana service: No Review of Systems Const Reports as per HPI and Reports no additional complaints Physical Exam Const General: cooperative, healthy appearing and well groomed Nutritional Appearance: thin Orientation/consciousness: patient oriented x3 Limitations: no limitations Neuro General: patient oriented x3 Assessment & Plan Assessment & Plan (1) Opioid use disorder, moderate, in sustained remission: Code(s): F11.21 - Opioid dependence, in remission Category: Medical Plan: * continue suboxone at current dose * follow up 2 weeks--then resume q 4 week visits Medications: Changed From buprenorphine-naloxone 8-2 mg (Suboxone) 1 film sublingual BID 28 days 56 ea 0RF To buprenorphine-naloxone 8-2 mg (Suboxone) 1 film sublingual BID 28 ea 0RF 14 days
== END 2024-03-20 11:53 | disposition home or self-care (01) ==
PROVIDERS: PCP Physician Assistant Medical; Visit Provider Nurse Practitioner Psychiatric/Mental Health
DX: F11.21 Opioid dependence, in remission (principal)
CPT/HCPCS: 99213

== ENCOUNTER → 2024-03-20 11:15 | Outpatient (BNVA) | payer MEDICAID, SELFPAY | PROVIDERS: PCP Physician Assistant Medical; Visit Provider Nurse Practitioner Psychiatric/Mental Health | DX: F14.21 Cocaine dependence, in remission (principal); F11.21 Opioid dependence, in remission; Z79.899 Other long term (current) drug therapy; Z51.81 Encounter for therapeutic drug level monitoring | CPT/HCPCS: 99212 ==

== ENCOUNTER 2024-04-06 09:11 | Outpatient (AMB) | payer MEDICAID, SELFPAY ==
--- NOTE | 2024-04-06 09:12 | A.OFFVISCC_ITS ---
Vital Signs 04/06/24 09:15 BP 130/70 Blood Pressure Location Rt brachial Position Sitting Pulse 84 Pulse Source Pulse Oximeter Pulse Oximetry (%) 97 Intake Visit Reasons: MAT Allergies quetiapine [From Seroquel] Adverse Reaction (Verified 03/18/23 11:14) agitation HPI HPI MAT: Details: Patient presents for follow up Doing well Missed his PCP appt --forgot about it, usuay gets a reminder No issues with current dose Denies any side effects PFSH Medical History (Updated 03/24/24 @ 15:46 by Janet Whitney CNP) Cocaine use disorder Constipation Social History Household Members: Spouse and Children Housing: Apartment Do you presently have visiting nurse or other home services: No Patient Tobacco Use Status: Current everyday Tobacco user Tobacco use type: Cigarette Cigarette Packs Per Day: 1 Cigarettes Per Day: 20.0 Years Smoked: 20 e-Cigarette/Vaping Use: Never Used Second Hand Smoke Exposure: Yes Substance Use Type: Crack/Cocaine, Heroin and Marijuana service: No Review of Systems Const Reports as per HPI and Reports no additional complaints Physical Exam Vital Signs: Last Vital Signs Pulse 84 04/06/24 09:15 BP 130/70 04/06/24 09:15 Pulse Ox 97 04/06/24 09:15 Const General: cooperative, healthy appearing and well groomed Nutritional Appearance: thin Orientation/consciousness: patient oriented x3 Limitations: no limitations Neuro General: patient oriented x3 Assessment & Plan Assessment & Plan (1) Opioid use disorder, moderate, in sustained remission: Code(s): F11.21 - Opioid dependence, in remission Category: Medical Plan: * continue suboxone at current dose * follow up 2 moths * refill to be sent by this conventional underwriter Medications: Changed From buprenorphine-naloxone 8-2 mg (Suboxone) 1 film sublingual BID 14 days 28 ea 0RF To buprenorphine-naloxone 8-2 mg (Suboxone) 1 film sublingual BID 60 ea 0RF
[2024-04-06 09:15] VITALS: BP 130/70; PULSE 84; O2SAT 97
== END 2024-04-06 09:42 | disposition home or self-care (01) ==
PROVIDERS: PCP Physician Assistant Medical; Visit Provider Nurse Practitioner Psychiatric/Mental Health
DX: F11.21 Opioid dependence, in remission (principal)
CPT/HCPCS: 99213

== ENCOUNTER → 2024-04-06 09:11 | Outpatient (BNVA) | payer MEDICAID, SELFPAY | PROVIDERS: PCP Physician Assistant Medical; Visit Provider Nurse Practitioner Psychiatric/Mental Health | DX: F14.21 Cocaine dependence, in remission (principal); F11.21 Opioid dependence, in remission; K59.00 Constipation, unspecified; Z79.899 Other long term (current) drug therapy | CPT/HCPCS: 99212 ==

== ENCOUNTER 2024-06-02 14:08 | Outpatient (AMB) | payer MEDICAID, SELFPAY ==
[2024-06-02 14:16] VITALS: BP 126/70; PULSE 84; RESP 16; TEMP 35; O2SAT 95
--- NOTE | 2024-06-02 14:16 | A.OFFVISCC_ITS ---
Vital Signs 06/02/24 14:16 BP 126/70 Blood Pressure Location Rt brachial Position Sitting Respiration 16 Pulse 84 Pulse Source Pulse Oximeter Temp 95 F L Pulse Oximetry (%) 95 Oxygen Delivery Method Room Air Intake Visit Reasons: MAT Allergies quetiapine [From Seroquel] Adverse Reaction (Verified 03/18/23 11:14) agitation HPI HPI MAT: Details: Patient presents for follow up Currently prescribed Suboxone 8mg BID Tolerating medication without issue still working FT saw PCP recently [facility] Medical History (Updated 03/24/24 @ 15:46 by Janet Whitney CNP) Cocaine use disorder Constipation Social History Household Members: Spouse and Children Housing: Apartment Do you presently have visiting nurse or other home services: No Patient Tobacco Use Status: Current everyday Tobacco user Tobacco use type: Cigarette Cigarette Packs Per Day: 1 Cigarettes Per Day: 20.0 Years Smoked: 20 e-Cigarette/Vaping Use: Never Used Second Hand Smoke Exposure: Yes Substance Use Type: Crack/Cocaine, Heroin and Marijuana service: No Review of Systems Const Reports as per HPI and Reports no additional complaints Physical Exam Vital Signs: Last Vital Signs Temp 95 F L 06/02/24 14:16 Pulse 84 06/02/24 14:16 Resp 16 06/02/24 14:16 BP 126/70 06/02/24 14:16 Pulse Ox 95 06/02/24 14:16 Oxygen Delivery Method Room Air 06/02/24 14:16 Const General: cooperative, healthy appearing, no acute distress and well groomed Assessment & Plan Assessment & Plan (1) Opioid use disorder, moderate, in sustained remission: Code(s): F11.21 - Opioid dependence, in remission Category: Medical Plan: * continue suboxone at current dose * follow up 8 weeks Medications: Refilled buprenorphine-naloxone 8-2 mg (Suboxone) 1 film sublingual BID 60 ea 1RF
== END 2024-06-02 14:24 | disposition home or self-care (01) ==
PROVIDERS: PCP Physician Assistant Medical; Visit Provider Nurse Practitioner Psychiatric/Mental Health
DX: F11.21 Opioid dependence, in remission (principal)
CPT/HCPCS: 99213

== ENCOUNTER → 2024-06-02 14:08 | Outpatient (BNVA) | payer MEDICAID, SELFPAY | PROVIDERS: PCP Physician Assistant Medical; Visit Provider Nurse Practitioner Psychiatric/Mental Health | DX: F11.21 Opioid dependence, in remission (principal); K59.00 Constipation, unspecified; Z79.899 Other long term (current) drug therapy | CPT/HCPCS: 99212 ==

== ENCOUNTER 2024-08-26 10:10 | Outpatient (AMB) | payer MEDICAID, SELFPAY ==
--- NOTE | 2024-08-26 10:45 | A.OFFVISCC_ITS ---
Intake Visit Reasons: MAT Allergies quetiapine [From Seroquel] Adverse Reaction (Verified 03/18/23 11:14) agitation HPI HPI MAT: Details: Patient presents as walk in for follow up missed last appt as he had moved to [facility] to be with a girl and he states it did not go well moved back here yesterday, moved back with his mother and was able to get his old job back has run out of medications denies any opiate use, but does report anxiety PFSH Medical History (Updated 03/24/24 @ 15:46 by Janet Whitney CNP) Cocaine use disorder Constipation Social History Household Members: Spouse and Children Housing: Apartment Do you presently have visiting nurse or other home services: No Patient Tobacco Use Status: Current everyday Tobacco user Tobacco use type: Cigarette Cigarette Packs Per Day: 1 Cigarettes Per Day: 20.0 Years Smoked: 20 e-Cigarette/Vaping Use: Never Used Second Hand Smoke Exposure: Yes Substance Use Type: Crack/Cocaine, Heroin and Marijuana service: No Review of Systems Const Reports as per HPI Physical Exam Const General: cooperative, healthy appearing, no acute distress and well groomed Assessment & Plan Assessment & Plan (1) Opioid use disorder, moderate, in sustained remission: Code(s): F11.21 - Opioid dependence, in remission Category: Medical Plan: * continue suboxone at current dose * follow up 8 weeks * encouraged to call office should he ever decide to relocate so we can assist in locating provider in his area
== END 2024-08-26 10:57 | disposition home or self-care (01) ==
PROVIDERS: PCP Physician Assistant Medical; Visit Provider Nurse Practitioner Psychiatric/Mental Health
DX: F11.21 Opioid dependence, in remission (principal)
CPT/HCPCS: 99213

== ENCOUNTER → 2024-08-26 10:10 | Outpatient (BNVA) | payer MEDICAID, SELFPAY | PROVIDERS: PCP Physician Assistant Medical; Visit Provider Nurse Practitioner Psychiatric/Mental Health | DX: F11.21 Opioid dependence, in remission (principal) | CPT/HCPCS: 99212 ==

== ENCOUNTER 2024-09-23 14:49 | Outpatient (AMB) | payer MEDICAID, SELFPAY ==
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
== END 2024-09-23 15:04 | disposition home or self-care (01) ==
PROVIDERS: PCP Physician Assistant Medical; Visit Provider Nurse Practitioner Psychiatric/Mental Health
DX: F11.21 Opioid dependence, in remission (principal)
CPT/HCPCS: 99213

== ENCOUNTER 2024-09-23 14:49 | Outpatient (REF) | payer MEDICAID, SELFPAY ==
[2024-09-23 17:06] LABS: Alanine Aminotransferase 17 U/L (0-40); Albumin Level 4.3 g/dL (3.5-5.0); Alkaline Phosphatase 73 U/L (39-117); Anion Gap 12 (12-20); Aspartate Amino Transferase 25 U/L (5-37); Bilirubin Total 0.2 mg/dL (0.0-1.0); Blood Urea Nitrogen 21 mg/dL (9-16); Calcium 9.7 mg/dL (8.4-10.2); Carbon Dioxide 30 mmol/L (22-29); Chloride 104 mmol/L (96-108); Estimated Glomerular Filt Rate > 60; Glucose Random 80 mg/dL (60-115); Potassium 4.5 mmol/L (3.3-5.1); Sodium 141 mmol/L (135-145); Total Protein 7.3 g/dL (6.5-8.0)
[2024-09-24 04:38] LABS: HBS Num1 23.99 mIU/mL (0-7.99); HBc Num1 5.43 S/CO (0.00-0.79); HBsAGNum1 0.41 S/CO (0.00-0.99); HIV AB/AG Nonreactive (Nonreactive); HIV Num 1 0.05 S/CO (0.00-0.99); Hepatitis A Antibody IgM 0.22 Index (0-0.79); Hepatitis B Surface Antigen Negative (Negative); ~HepC Num1 12.68 S/CO (0.00-0.79); ~Hepatitis A Antibody IgM Nonreactive (Nonreactive); ~Hepatitis B Surface Antibody REACTIVE (Nonreactive); ~Hepatitis C Antibody Reactive (Nonreactive)
[2024-09-24 05:24] LABS: HBc Num3 5.36 S/CO; Hepatitis B Core Antibody Reactive (Nonreactive)
[2024-09-25 18:37] LABS: HCV Log PCR <1.18 NOT DETECTED Log IU/mL (NOT DETECTED); HepC Viral Load <15 NOT DETECTED IU/mL (NOT DETECTED)
== END 2024-09-23 14:50 | disposition home or self-care (01) ==
LOC: HO.LAB 14:49
PROVIDERS: PCP Physician Assistant Medical; Visit Provider Nurse Practitioner Psychiatric/Mental Health
DX: F11.21 Opioid dependence, in remission (principal); Z79.899 Other long term (current) drug therapy
CPT/HCPCS: 36415; 80053; 86704; 86706; 86709; 86803; 87340; 87389; 87522; 99212

== ENCOUNTER 2025-01-04 14:52 | Outpatient (AMB) | payer OTHER, SELFPAY ==
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
== END 2025-01-04 15:26 | disposition home or self-care (01) ==
PROVIDERS: PCP Physician Assistant Medical; Visit Provider Nurse Practitioner Psychiatric/Mental Health
DX: F11.21 Opioid dependence, in remission (principal)
CPT/HCPCS: 99214

== ENCOUNTER → 2025-01-04 14:52 | Outpatient (BNVA) | payer OTHER, SELFPAY | PROVIDERS: PCP Physician Assistant Medical; Visit Provider Nurse Practitioner Psychiatric/Mental Health | DX: F11.21 Opioid dependence, in remission (principal) | CPT/HCPCS: 99212 ==

== ENCOUNTER 2025-04-09 13:58 | Outpatient (AMB) | payer OTHER, SELFPAY ==
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
== END 2025-04-09 14:45 | disposition home or self-care (01) ==
LOC: HO.HCC 13:58
PROVIDERS: PCP Physician Assistant Medical; Visit Provider Internal Medicine
DX: F11.21 Opioid dependence, in remission (principal)
CPT/HCPCS: 99213

== ENCOUNTER → 2025-04-09 13:58 | Outpatient (BNVA) | payer MEDICAID, SELFPAY | PROVIDERS: PCP Physician Assistant Medical; Visit Provider Internal Medicine | DX: F11.21 Opioid dependence, in remission (principal) | CPT/HCPCS: 99212 ==

== ENCOUNTER 2025-05-03 10:43 | Outpatient (AMB) | payer MEDICAID, SELFPAY ==
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
== END 2025-05-03 11:29 | disposition home or self-care (01) ==
LOC: HO.HCC 10:43
PROVIDERS: PCP Physician Assistant Medical; Visit Provider Internal Medicine
DX: F33.1 Major depressive disorder, recurrent, moderate (principal); F11.21 Opioid dependence, in remission
CPT/HCPCS: 99213

== ENCOUNTER → 2025-05-03 10:43 | Outpatient (BNVA) | payer MEDICAID, SELFPAY | PROVIDERS: PCP Physician Assistant Medical; Visit Provider Internal Medicine | DX: F33.1 Major depressive disorder, recurrent, moderate (principal); F11.21 Opioid dependence, in remission | CPT/HCPCS: 99212 ==